=== PATIENT | female | born 1985 | race Hispanic/Latino ===

== ENCOUNTER 2017-06-27 09:46 | Emergency (ER) | payer OTHER ==
[2017-06-27 09:50] VITALS: BP 131/82; PULSE 80; TEMP 97; O2SAT 100
--- NOTE | 2017-06-27 10:24 | ED PDOC ---
HPI: Abdomen Time Seen by Provider: 06/27/17 10:16 Chief Complaint (Nursing): Abdominal Pain Chief Complaint (Provider): Abdominal Pain History Per: Patient Additional Complaint(s): 32 yo female, no PMH, presents to ED with complaints of post-coital lower abdominal cramping that developed around 10:30 pm last night. Pt reports the pain has lasted throught he night and is associated with loose, watery non bloody stools. Pt has not taken anything for pain thus far. Pt does note a history of ovarian cyst that she was told by her OB have went away. Pt on Progesterone only oral contraceptives. No fever or chills noted. No nausea or vomiting. Past Medical History Reviewed: Nursing Documentation, Vital Signs Vital Signs: Last Vital Signs Temp 97 F L 06/27/17 09:49 Pulse 80 06/27/17 09:49 Resp BP 131/82 06/27/17 09:49 Pulse Ox 100 06/27/17 10:32 - Medical History PMH: No Chronic Diseases - Surgical History Surgical History: No Surg Hx - Family History Family History: States: No Known Family Hx - Living Arrangements Living Arrangements: With Friends/Others - Social History Current smoker - smoking cessation education provided: No Alcohol: Social Drugs: Denies - Home Medications Home Medications: Ambulatory Orders Medication Instructions Recorded Dicyclomine [Bentyl] 10 mg PO QID PRN #10 cap 06/27/17 Ibuprofen [Motrin] 600 mg PO Q6 #20 tab 06/27/17 - Allergies Allergies/Adverse Reactions: Allergies Allergy/AdvReac Type Severity Reaction Status Date / Time No Known Allergies Allergy Verified 06/27/17 09:53 Review of Systems ROS Statement: Except As Marked, All Systems Reviewed And Found Negative Gastrointestinal: Positive for: Abdominal Pain, Diarrhea Physical Exam - Reviewed Nursing Documentation Reviewed: Yes Vital Signs Reviewed: Yes - Physical Exam Appears: Positive for: Well, Non-toxic, No Acute Distress Head Exam: Positive for: ATRAUMATIC, NORMAL INSPECTION, NORMOCEPHALIC Skin: Positive for: Normal Color, Warm, DRY Eye Exam: Positive for: EOMI, Normal appearance, PERRL ENT: Positive for: Normal ENT Inspection Neck: Positive for: Normal, Painless ROM Cardiovascular/Chest: Positive for: Regular Rate, Rhythm Respiratory: Positive for: CNT, Normal Breath Sounds Gastrointestinal/Abdominal: Positive for: Normal Exam, Bowel Sounds, Soft. Negative for: Tenderness, Distended, Guarding Back: Positive for: Normal Inspection Extremity: Positive for: Normal ROM Neurologic/Psych: Positive for: Alert, Oriented - Laboratory Results Result Diagrams: 06/27/17 10:43 06/27/17 10:43 - ECG O2 Sat by Pulse Oximetry: 100 Medical Decision Making Medical Decision Making: IV access established and treatment initiated with IVF and Toradol On re-eval, pt reports pain is still present. 2 mg Morphine administered IM. Labs resulted and reviewed with pt who demonstrated full understanding WBC 12.6 Hgb 11.5 COMP WNL UA WNL Urine preg (-) US reported by tech: Questionable Left ectopic? Free fluid in cul de sac Inflated bowel loops Pt educated on all results and demonstrated understanding Pt denies any vaginal discharge, concern for STI Pt given additional 2 mg Morphine for complaints of pain returning after US. beta ordered due to questionable US read. CT scan offered, Pt declined. reports feeling improved after additional Morphine. pt tolerated PO as well. remains aferbile while in ED Beta < 2.39 Pt stable for discharge at this time. No further episodes of diarrhea while in ED. abdomen soft, non tender and non distended on re-eval. Pt advised to return to ED if at anytime condition worsens. Disposition - Clinical Impression Clinical Impression: Pelvic pain, Ovarian cyst, Diarrhea - Patient ED Disposition Is Patient to be Admitted: No - Disposition Disposition: Routine/Home Disposition Time: 15:00 Condition: STABLE Prescriptions: Dicyclomine [Bentyl] 10 mg PO QID PRN #10 cap PRN Reason: Pain, Mild (1-3) Ibuprofen [Motrin] 600 mg PO Q6 #20 tab Instructions: Ovarian Cyst (ED), Acute Diarrhea (ED), Pelvic Pain in Women (ED) Forms: [employer] (L[place]uanian), [facility] ED School/Work Excuse
[2017-06-27] MEDS ORDERED: Sodium Chloride 0.9% 1,000 ML IV STA (10:30)
[2017-06-27 10:51] LABS: BASO # 0.1 K/uL (0.0-0.2); BASO % 0.5 % (0.0-2.0); EOS % 0.3 % (0.0-4.0); HEMOGLOBIN 11.5 g/dL (12.0-16.0); LYMPH # 1.3 K/uL (1.0-4.3); LYMPH % 10.6 % (20.0-40.0); MEAN CELL VOLUME 94.6 fl (81.0-99.0); MEAN CORPUSCULAR HEMOGLOBIN 31.6 pg (27.0-31.0); MEAN CORPUSCULAR HGB CONC 33.5 g/dL (33.0-37.0); MEAN PLATELET VOLUME 7.6 fl (7.2-11.7); MONO # 0.9 K/uL (0.0-0.8); MONO % 6.8 % (0.0-10.0); NEUT # 10.3 K/uL (1.8-7.0); NEUT % 81.8 % (50.0-75.0); RBC 3.64 Mil/uL (3.80-5.20); RED CELL DISTRIBUTION WIDTH 12.9 % (11.5-14.5); WHITE BLOOD COUNT 12.6 K/uL (4.8-10.8)
[2017-06-27 11:02] LABS: ALB/GLOB RATIO 1.4 (1.0-2.1); ALBUMIN 4.1 g/dL (3.5-5.0); ALT/SGPT 30 U/L (9-52); AMYLASE 74 U/L (30-110); AST/SGOT 17 U/L (14-36); BLOOD UREA NITROGEN 9 mg/dl (7-17); CALCIUM 9.5 mg/dL (8.4-10.2); GFR AFRICAN-AMERICAN > 60; GFR NON-AFRICAN AMERICAN > 60; LIPASE 88 U/L (23-300)
[2017-06-27 11:05] LABS: SQUAMOUS EPITHIAL 2 /hpf (0-5); URINE BACTERIA OCC (<OCC); URINE BILIRUBIN NEGATIVE (NEGATIVE); URINE BLOOD NEGATIVE (NEGATIVE); URINE CLARITY CLOUDY (Clear); URINE COLOR STRAW (YELLOW); URINE GLUCOSE (UA) NEG (Normal); URINE LEUKOCYTE ESTERASE MOD Leu/uL (Negative); URINE NITRATE NEGATIVE (NEGATIVE); URINE PROTEIN NEGATIVE (NEGATIVE); URINE UROBILINOGEN 0.2-1.0 mg/dL (0.2-1.0)
[2017-06-27] MEDS ORDERED: Morphine 4 MG/ML VIAL ONE ×2 (11:42→14:30)
--- NOTE | 2017-06-27 14:36 | US ---
HISTORY: pelvic pain, hx of cysts, r/o torsion COMPARISON: None available. TECHNIQUE: Grayscale, color Doppler and spectral evaluation of the pelvis performed transvaginally. FINDINGS: UTERUS: Measures 6.6 x 3.4 x 4.8 cm. Normal in size and appearance. No fibroid or other mass lesion seen. ENDOMETRIUM: Measures 4 mm in diameter. Unremarkable. CERVIX: No cervical abnormality identified. RIGHT OVARY: Measures 2.7 x 2.0 x 2.4 cm. No solid mass. Normal flow. LEFT OVARY: Measures 5.2 x 3.2 x 4.5 cm. 2.6 x 1.3 x 3.1 centimeter cyst. Normal flow. FREE FLUID: Large volume free fluid. OTHER FINDINGS: None. IMPRESSION: Bilateral symmetric ovarian Doppler flow. Probable left ovarian 3.1 centimeter corpus luteal cyst. Large volume pelvic fluid. Close clinical follow-up with follow-up pelvic sonography is recommended.
== END 2017-06-27 14:37 | disposition home or self-care (01) ==
LOC: H.ER 09:46
DX: N83.209 Unspecified ovarian cyst, unspecified side (principal); R10.2 Pelvic and perineal pain
CPT/HCPCS: 76830; 80053; 81003; 81025; 82150; 83690; 84702; 85025; 96374; 99282; J1885; J2270; J7040